=== PATIENT | female | born 1990 | race African-American/Black ===

== ENCOUNTER 2019-10-24 14:12 | Emergency (ER) | payer OTHER ==
[~2019-10-24] VITALS: Ht 160 cm; Wt 61.2 kg
[2019-10-24 14:48] LABS: INFLUENZA A ANTIGEN Negative (Negative)
[2019-10-24] MEDS ORDERED: TAMIFLU75 MG PO (15:23)
[2019-10-24] MEDS ORDERED: ONDANSETRON HCL4 M2 PO (15:23)
[2019-10-24] MEDS ORDERED: TYLENOL WITH CO1 TA1 PO (15:23)
[2019-10-24 15:52] VITALS: BP 121/79
== END 2019-10-24 15:52 | disposition home or self-care (01) ==
LOC: M.ERS 14:12
PROVIDERS: Nurse Practitioner Family
DX: J10.1 Influenza due to other identified influenza virus with other respiratory manifestations (principal); Z88.0 Allergy status to penicillin; Z88.8 Allergy status to other drugs, medicaments and biological substances

== ENCOUNTER 2021-04-11 09:52 | Emergency (ER) | payer OTHER, MEDICAID ==
[~2021-04-11] VITALS: Ht 160 cm; Wt 61.2 kg
[~2021-04-11 09:52] MED LIST: ONDANSETRON HCL4 M2 PO; TAMIFLU75 MG PO; TYLENOL WITH CO1 TA1 PO
[2021-04-11] MEDS ORDERED: APAP W/CODEINE1 TA2 PO (10:47)
[2021-04-11] MEDS ORDERED: TESSALON PERLE100 MG PO (10:48)
[2021-04-11 11:04] VITALS: BP 126/61
== END 2021-04-11 11:05 | disposition home or self-care (01) ==
LOC: M.ERS 09:52
DX: J02.9 Acute pharyngitis, unspecified (principal); Z88.0 Allergy status to penicillin; Z88.6 Allergy status to analgesic agent